=== PATIENT | male | born 1990 | race Caucasian/White ===

== ENCOUNTER 2017-06-18 07:48 | Emergency (ER) | payer BC ==
--- NOTE | 2017-06-18 08:22 | UC ---
Skin Complaint HPI - HPI Summary HPI Summary: sliver right palm x 1 day was removed by the pt. yesterday cont. to have pain , no swelling, no redness, no discharge, - History of Current Complaint Chief Complaint: UCSkin Time Seen by Provider: 06/18/17 08:11 Stated Complaint: RIGHT HAND COMPLAINT Hx Obtained From: Patient Onset/Duration: Sudden Onset, Lasting Days - 1, Resolved Timing: Constant Onset Severity: Moderate Current Severity: Mild Pain Intensity: 4 Location: Hand (Right) - palm Character: Pain, Painful Aggravating Factor(s): Touch Alleviating Factor(s): Nothing Associated Signs & Symptoms: Positive: Tenderness. Negative: Fever, Chills, Red Streaks Related History: Foreign Body - sliver right palm - Allergy/Home Medications Allergies/Adverse Reactions: Allergies Allergy/AdvReac Type Severity Reaction Status Date / Time No Known Allergies Allergy Verified 06/18/17 08:08 Home Medications: Home Medications NK [No Home Medications Reported] 06/18/17 [History Confirmed 06/18/17] Review of Systems Constitutional: Negative Eyes: Negative ENT: Negative Respiratory: Negative Cardiovascular: Negative Is Patient Immunocompromised?: No All Other Systems Reviewed And Are Negative: Yes PMH/Surg Hx/FS Hx/Imm Hx Previously Healthy: Yes - Surgical History Surgical History: None - Family History Known Family History: Negative: Diabetes - Social History Alcohol Use: None Substance Use Type: None Smoking Status (MU): Current Every Day Smoker Type: Cigarettes, Smokeless Tobacco Physical Exam Triage Information Reviewed: Yes Appearance: Well-Appearing, No Pain Distress, Well-Nourished Vital Signs: Initial Vital Signs Temp 98 F 06/18/17 08:05 Pulse 75 06/18/17 08:05 Resp 18 06/18/17 08:05 BP 130/79 06/18/17 08:05 Pulse Ox 100 06/18/17 08:05 Vital Signs Reviewed: Yes Eyes: Positive: Conjunctiva Clear ENT: Positive: Normal ENT inspection, Hearing grossly normal, Pharynx normal Neck: Positive: Supple, Nontender, No Lymphadenopathy Respiratory: Positive: Chest non-tender, Lungs clear, Normal breath sounds Cardiovascular: Positive: RRR, No Murmur, Pulses Normal Skin: Positive: Other - small puncture right palm , no fb noted Course/Dx - Diagnoses Provider Diagnoses: puncture wound right palm. fb right hand Discharge - Sign-Out/Discharge Documenting (check all that apply): Discharge/Admit/Transfer - Discharge Plan Condition: Stable Disposition: HOME Patient Education Materials: Soft Tissue Foreign Body (ED) Referrals: No Primary Care Phys,NOPCP [Primary Care Provider] - If Needed Additional Instructions: keep the area clean , no foreign body seen , take Ibuprofen as needed for pain - Billing Disposition and Condition Condition: STABLE Disposition: HOME
== END 2017-06-18 08:23 | disposition home or self-care (01) ==
LOC: UCCORT 07:48
DX: S61.431A Puncture wound without foreign body of right hand, initial encounter (principal); X58.XXXA Exposure to other specified factors, initial encounter; Y92.9 Unspecified place or not applicable; F17.210 Nicotine dependence, cigarettes, uncomplicated
CPT/HCPCS: 99211; G0463

== ENCOUNTER 2018-04-16 11:34 | Emergency (ER) | payer BC ==
[2018-04-16] MEDS ORDERED: Albuterol 2.5 MG/3 ML NEB.SOL* (0.083%) INH ONE (11:49)
--- NOTE | 2018-04-16 11:56 | UC ---
UC General HPI - HPI Summary HPI Summary: day 3 of headache, bodyaches, fever/chills and scratchy throat. admits to somesinus congestion, cough and sob. no hx asthma. - History of Current Complaint Stated Complaint: CONGESTION, ACHES Time Seen by Provider: 04/16/18 11:45 Hx Obtained From: Patient Onset/Duration: Sudden Onset Timing: Constant Associated Signs & Symptoms: Positive: Cough, SOB. Negative: Chest Pain, Diarrhea, Vomiting - Allergy/Home Medications Allergies/Adverse Reactions: Allergies Allergy/AdvReac Type Severity Reaction Status Date / Time No Known Allergies Allergy Verified 04/16/18 11:58 PMH/Surg Hx/FS Hx/Imm Hx Previously Healthy: Yes - Surgical History Surgical History: None - Family History Known Family History: Negative: Diabetes - Social History Lives: With Family Alcohol Use: None Substance Use Type: None Smoking Status (MU): Current Every Day Smoker Type: Cigarettes, Smokeless Tobacco Review of Systems All Other Systems Reviewed And Are Negative: Yes Constitutional: Positive: Fever, Chills, Fatigue Skin: Positive: Negative Eyes: Positive: Negative ENT: Positive: Sore Throat - "scratchy", Sinus Congestion Respiratory: Positive: Shortness Of Breath, Cough Cardiovascular: Positive: Negative Gastrointestinal: Positive: Negative Genitourinary: Positive: Negative Motor: Positive: Negative Neurovascular: Positive: Negative Musculoskeletal: Positive: Myalgia Neurological: Positive: Headache Psychological: Positive: Negative Physical Exam Triage Information Reviewed: Yes Appearance: Ill-Appearing - but non toxic Vital Signs Reviewed: Yes Eyes: Positive: Conjunctiva Clear ENT: Positive: Pharynx normal, TMs normal. Negative: Nasal drainage, Sinus tenderness Neck: Positive: Supple, Nontender, No Lymphadenopathy. Negative: Nuchal Rigidity Respiratory: Positive: No respiratory distress, Decreased breath sounds Cardiovascular: Positive: RRR, No Murmur Abdomen Description: Positive: Nontender, No Organomegaly, Soft Bowel Sounds: Positive: Present Musculoskeletal: Positive: ROM Intact Neurological: Positive: Alert Psychological: Positive: Age Appropriate Behavior Skin Exam: Normal Diagnostics - Laboratory Diagnostic Studies Completed/Ordered: influenza A + - Radiology No standard instances Radiology Interpretation Completed By: Radiologist - CXR=IMPRESSION: #. Subtle alveolar consolidation at the RIGHT mid to upper lung zone is concerning for pneumonia given the clinical context. Radiographic follow-up after therapy suggested to assess for resolution. Re-Evaluation - Re-Evaluation First Eval Re-Evaluation Time: 12:15 Change: Improved - BETTER AERATION. PT NOTES BREATHING IS EASIER Course/Dx - Differential Dx - Multi-Symptom Differential Diagnoses: Other - viral syndrom, influenza, pneumonia - Diagnoses Provider Diagnosis: Influenza A, Pneumonia Discharge - Sign-Out/Discharge Documenting (check all that apply): Patient Departure All imaging exams completed and their final reports reviewed: Yes - Discharge Plan Condition: Stable Disposition: HOME Prescriptions: Albuterol HFA INHALER* [Ventolin HFA Inhaler*] 2 puff INH Q6H #1 mdi DOXYcycline CAP(*) [DOXYcycline 100MG CAP(*)] 100 mg PO BID 10 Days #20 cap Patient Education Materials: Influenza (ED), Pneumonia (ED) Forms: *Work Release Referrals: THAD Villagomez [Medical Doctor] - 7 Days Additional Instructions: FOLLOW UP SOONER IF WORSE. - Billing Disposition and Condition Condition: STABLE Disposition: Home
[2018-04-16 11:58] VITALS: BP 112/71
[2018-04-16 12:10] LABS: Influenza A Molecular POSITIVE (Negative)
== END 2018-04-16 12:25 | disposition home or self-care (01) ==
LOC: UCCORT 11:34
DX: J10.00 Influenza due to other identified influenza virus with unspecified type of pneumonia (principal); F17.210 Nicotine dependence, cigarettes, uncomplicated
CPT/HCPCS: 71046; 99212; G0463

== ENCOUNTER 2019-04-14 09:47 | Emergency (ER) | payer BC ==
[2019-04-14 10:30] VITALS: BP 128/74
--- NOTE | 2019-04-14 10:32 | UC ---
Hand/Wrist HPI - HPI Summary HPI Summary: 28-year-old male who hit his right hand against a hand rail complains of pain to the middle and fourth fingers. - History Of Current Complaint Chief Complaint: UCUpperExtremity Stated Complaint: R H AND INJ Time Seen by Provider: 04/14/19 10:21 Hx Obtained From: Patient ?: No Onset/Duration: Sudden Onset Severity Initially: Mild Severity Currently: Mild Pain Intensity: 2 Character Of Pain: Dull, Aching Aggravating Factor(s): Movement, Flexion, Extension Alleviating Factor(s): Rest Associated Signs And Symptoms: Positive: Swelling - Allergies/Home Medications Allergies/Adverse Reactions: Allergies Allergy/AdvReac Type Severity Reaction Status Date / Time cats Allergy Swelling Uncoded 04/14/19 10:31 Of Face,Lips,& Throat Home Medications: Home Medications NK [No Home Medications Reported] 04/14/19 [History Confirmed 04/14/19] PMH/Surg Hx/FS Hx/Imm Hx Previously Healthy: Yes - Surgical History Surgical History: None - Family History Known Family History: Negative: Diabetes - Social History Occupation: Employed Full-time Lives: With Family Alcohol Use: None Substance Use Type: None Smoking Status (MU): Light Every Day Tobacco Smoker Type: Cigarettes, Smokeless Tobacco Amount Used/How Often: 4-5 cigarettes daily Review of Systems All Other Systems Reviewed And Are Negative: Yes Skin: Negative: Bruising Musculoskeletal: Positive: Other: - Patient complains of pain mostly over the dorsum of his right hand. Is Patient Immunocompromised?: No Physical Exam Triage Information Reviewed: Yes Appearance: Well-Appearing, No Pain Distress, Well-Nourished Vital Signs: Initial Vital Signs Temp 98.7 F 04/14/19 10:21 Pulse 92 04/14/19 10:21 Resp 14 04/14/19 10:21 BP 128/74 04/14/19 10:21 Pulse Ox 99 04/14/19 10:21 Vital Signs Reviewed: Yes Musculoskeletal Exam: Normal Musculoskeletal: Positive: Other: - Good peripheral pulses, neuro sensation and capillary refill, full range of motion, good finger strength with flexion extension against resistance. No bruising, erythema, swelling or deformity is noted. Neurological Exam: Normal Psychological Exam: Normal Skin Exam: Normal Hand/Wrist Course/Dx - Course Course Of Treatment: Right hand x-ray:FINDINGS: BONE DENSITY: Normal. BONES: There is no displaced fracture. JOINTS: There is no arthropathy. ALIGNMENT: There is no dislocation. SOFT TISSUES: There is soft tissue swelling of the second, third, fourth PIP joints. OTHER FINDINGS: None. IMPRESSION: SOFT TISSUE SWELLING. NO ACUTE OSSEOUS INJURY. IF SYMPTOMS PERSIST, RECOMMEND REPEAT IMAGING. - Differential Dx/Diagnosis Provider Diagnosis: Contusion, hand Discharge ED - Sign-Out/Discharge Documenting (check all that apply): Patient Departure All imaging exams completed and their final reports reviewed: Yes - Discharge Plan Condition: Good Disposition: HOME Patient Education Materials: Contusion in Adults (ED) Forms: *Work Release Referrals: Evan Norris MD [Medical Doctor] - No Primary Care Phys,NOPCP [Primary Care Provider] - Additional Instructions: Apply ice intermittently to the sore area, Tylenol for pain. Follow-up with orthopedist if worsening symptoms or no improvement in 5-7 days. - Billing Disposition and Condition Condition: GOOD Disposition: Home
== END 2019-04-14 11:00 | disposition home or self-care (01) ==
LOC: UCCORT 09:47
DX: S60.221A Contusion of right hand, initial encounter (principal); F17.210 Nicotine dependence, cigarettes, uncomplicated; F17.290 Nicotine dependence, other tobacco product, uncomplicated; M79.89 Other specified soft tissue disorders; Z91.09 Other allergy status, other than to drugs and biological substances; W22.8XXA Striking against or struck by other objects, initial encounter; Y92.9 Unspecified place or not applicable
CPT/HCPCS: 99211; G0463